=== PATIENT | male | born 1950 | race Caucasian/White ===

== ENCOUNTER 2016-05-30 11:05 | Day surgery (SDC) | payer BC, MEDICARE, OTHER ==
[2016-05-30] MEDS ORDERED: LACTATED RINGERS 1,000 ML IV ONE (11:42)
[2016-05-30] MEDS ORDERED: fentaNYL 250 MCG/5 ML VIAL IVP ONE (13:54)
[2016-05-30] MEDS ORDERED: MIDAZOLAM 2 MG/2 ML VIAL IVP ONE (13:54)
== END 2016-05-30 11:06 | disposition home or self-care (01) ==
PROC: 0DBN8ZZ Excision of Sigmoid Colon, Via Natural or Artificial Opening Endoscopic (ICD-10-PCS; 2016-05-30)
PROC: 0DBM8ZZ Excision of Descending Colon, Via Natural or Artificial Opening Endoscopic (ICD-10-PCS; principal; 2016-05-30 12:30)
DX: Z12.11 Encounter for screening for malignant neoplasm of colon (principal); D12.5 Benign neoplasm of sigmoid colon; D12.4 Benign neoplasm of descending colon; K64.4 Residual hemorrhoidal skin tags; K57.30 Diverticulosis of large intestine without perforation or abscess without bleeding
CPT/HCPCS: 45385; J3010; J7120

== ENCOUNTER 2021-12-25 07:13 | Outpatient (CLI) | payer MEDICARE, OTHER | END 2021-12-25 07:14 | disposition EMS.NT | LOC: EMS 07:13 | DX: R25.2 Cramp and spasm (principal); R42 Dizziness and giddiness ==